=== PATIENT | female | born 1955 | race Caucasian/White ===

== ENCOUNTER 2019-01-25 11:50 | Emergency (ER) | payer OTHER, BC ==
[~2019-01-25] VITALS: Ht 157.5 cm; Wt 100.0 kg
[~2019-01-25 11:50] MED LIST: ASPIRIN325 MG PO; COZAAR25 MG PO; CRESTOR5 MG PO; LEVOTHYROXIN125 MCG PO; LOVASTATIN20 M1 PO; TRAMADOL HCL50 MG PO; ZOLOFT25 MG PO
[2019-01-25] MEDS ORDERED: TRAMADOL HCL50 MG PO (12:56)
[2019-01-25] MEDS ORDERED: HYDROCO/APAP1 TA9 PO (13:24)
[2019-01-25 13:45] VITALS: BP 179/73
== END 2019-01-25 13:45 | disposition home or self-care (01) | DRG 605 ==
LOC: ED 11:50
DX: S20.212A Contusion of left front wall of thorax, initial encounter (principal); I10 Essential (primary) hypertension; V43.63XA Car passenger injured in collision with pick-up truck in traffic accident, initial encounter

== ENCOUNTER → 2021-09-18 | Day surgery (SDC) | payer BC ==
[~2021-09-18] VITALS: Ht 157.5 cm; Wt 113.4 kg
[~2021-09-18] MED LIST changes: +HYDROCO/APAP1 TA9 PO; +PERCOCET 5/321 COMBO PO
[2021-09-18 12:41] VITALS: BP 150/83
== END | disposition home or self-care (01) | DRG 580 ==
LOC: ORM 08:24
PROVIDERS: ATTEND Surgery
PROC: 0JH63WZ Insertion of Totally Implantable Vascular Access Device into Chest Subcutaneous Tissue and Fascia, Percutaneous Approach (ICD-10-PCS; principal; 2021-09-18)
PROC: 02HV33Z Insertion of Infusion Device into Superior Vena Cava, Percutaneous Approach (ICD-10-PCS; 2021-09-18)
DX: C50.912 Malignant neoplasm of unspecified site of left female breast (principal); C79.2 Secondary malignant neoplasm of skin

== ENCOUNTER 2022-03-19 06:50 | Inpatient (IN) | payer BC ==
[~2022-03-19] VITALS: Ht 157.5 cm; Wt 100.0 kg
[~2022-03-19 06:50] MED LIST changes: +MODAFINIL100 MG PO; +NEURONTIN300 MG PO
[2022-03-19 16:00] VITALS: BP 96/40
[2022-03-19 16:58] VITALS: BP 95/51
[2022-03-19 19:03] VITALS: BP 94/44
[2022-03-19 20:00] VITALS: BP 94/44
[2022-03-19 23:51] VITALS: BP 122/49
[2022-03-20] VITALS: BP 120/44
[2022-03-20 04:31] VITALS: BP 117/57
[2022-03-20 05:21] LABS: BASO% 0.1 % (0-3); HEMATOCRIT 27.4 % (37.0-47.0); HEMOGLOBIN 8.7 g/dl (12.0-16.0); IMMATURE GRANULOCYTES 0.3 % (0.0-5.0); LYMPH% 11.2 % (15-41); MEAN CELL VOLUME 92.6 fL CALC (80.0-100.0); MEAN CORPUSCULAR HGB 29.4 pG CALC (26.0-32.0); MEAN CORPUSCULAR HGB CONC 31.8 g/dL CAL (32.0-36.0); MONO% 10.3 % (2-13); NEUT# 9.22 thou/uL (2.00-7.15); NEUT% 78.1 % (42-76); RED BLOOD COUNT 2.96 mill/uL (4.20-5.60); RED CELL DISTRI WIDTH 17.1 % (11.5-15.5)
[2022-03-20 06:39] VITALS: BP 109/58
[2022-03-20 12:50] LABS: HEMATOCRIT 28.3 % (37.0-47.0); HEMOGLOBIN 8.9 g/dl (12.0-16.0)
[2022-03-20 15:25] VITALS: BP 143/62
[2022-03-20 19:14] VITALS: BP 115/53
[2022-03-21 04:30] VITALS: BP 151/67
[2022-03-21 07:11] VITALS: BP 118/57
[2022-03-21 15:43] VITALS: BP 125/51
[2022-03-21 19:02] VITALS: BP 139/53
[2022-03-22 03:44] VITALS: BP 153/60
[2022-03-22 06:53] VITALS: BP 159/62
[2022-03-22 08:04] VITALS: BP 159/62
[2022-03-22] MEDS ORDERED: PERCOCET 5/325M1 TAB PO (13:20)
== END 2022-03-22 14:30 | disposition home health service (06) | DRG 582 ==
LOC: ORM 06:50 → MS2 10:15
PROVIDERS: ADMIT Surgery; ATTEND Surgery
PROC: 0HTU0ZZ Resection of Left Breast, Open Approach (ICD-10-PCS; principal; 2022-03-19)
PROC: 07T60ZZ Resection of Left Axillary Lymphatic, Open Approach (ICD-10-PCS; 2022-03-19)
PROC: 0JPT0WZ Removal of Totally Implantable Vascular Access Device from Trunk Subcutaneous Tissue and Fascia, Open Approach (ICD-10-PCS; 2022-03-19)
PROC: 02PY33Z Removal of Infusion Device from Great Vessel, Percutaneous Approach (ICD-10-PCS; 2022-03-19)
DX: C50.912 Malignant neoplasm of unspecified site of left female breast (principal); C77.3 Secondary and unspecified malignant neoplasm of axilla and upper limb lymph nodes; C79.2 Secondary malignant neoplasm of skin; D62 Acute posthemorrhagic anemia; I10 Essential (primary) hypertension; E03.9 Hypothyroidism, unspecified; E78.00 Pure hypercholesterolemia, unspecified; Z86.73 Personal history of transient ischemic attack (TIA), and cerebral infarction without residual deficits; Z80.3 Family history of malignant neoplasm of breast; Z80.1 Family history of malignant neoplasm of trachea, bronchus and lung; Z92.21 Personal history of antineoplastic chemotherapy
CPT/HCPCS: J0131; J0690; J1100

== ENCOUNTER 2022-03-30 18:53 | Inpatient (IN) | payer BC ==
[~2022-03-30] VITALS: Ht 157.5 cm; Wt 102.0 kg
[~2022-03-30 18:53] MED LIST changes: +PERCOCET 5/325M1 TAB PO
--- NOTE | 2022-03-30 19:33 | NUR ---
PT IN VIA POV WITH C/O FVER DENIES ANY OTHER SYMPTOMS. PT AND VITALS STABLE. PROVIDER NOTIFIED
[2022-03-30 19:49] VITALS: BP 167/69
[2022-03-30 20:31] LABS: BASO% 0.3 % (0-3); EOS% 2.1 % (0-8); IMMATURE GRANULOCYTES 0.1 % (0.0-5.0); LYMPH% 8.5 % (15-41); MEAN CELL VOLUME 92.3 fL CALC (80.0-100.0); MEAN CORPUSCULAR HGB 27.9 pG CALC (26.0-32.0); MEAN CORPUSCULAR HGB CONC 30.3 g/dL CAL (32.0-36.0); MONO% 5.8 % (2-13); NEUT# 13.13 thou/uL (2.00-7.15); NEUT% 83.2 % (42-76); RED BLOOD COUNT 3.9 mill/uL (4.20-5.60); RED CELL DISTRI WIDTH 17.9 % (11.5-15.5)
[2022-03-30 20:33] LABS: HEMOGLOBIN 10.9 g/dl (12.0-16.0)
[2022-03-30 20:45] LABS: ALBUMIN 4.1 g/dL (3.2-5.0); ALKALINE PHOSPHATASE 73 u/l (38-126); ANION GAP 8 (6-22 (CALC)); BILIRUBIN, TOTAL 0.5 mg/dL (0.02-1.3); BUN 16 mg/dL (8-23); BUN/CREATININE RATIO 20 (12-20 (CALC)); CARBON DIOXIDE 28 mmol/l (22-30); CHLORIDE 101 mmol/l (95-108); CREATININE 0.8 mg/dL (0.5-1.0); GFR FOR AFR.AMER. > 60 ML/MIN (>=60 (CALC)); GFR OTHER RACES > 60 ML/MIN (>=60 (CALC)); POTASSIUM 4.2 mmol/l (3.5-5.1); SGOT/AST 42 u/l (9-36); SODIUM 133 mmol/l (137-146)
[2022-03-30 23:32] LABS: URINE BILIRUBIN - DIPSTICK NEGATIVE (NEGATIVE); URINE BLOOD DIPSTICK NEGATIVE (NEGATIVE); URINE COLOR YELLOW; URINE GLUCOSE - DIPSTICK NEGATIVE (NEGATIVE); URINE KETONE NEGATIVE (NEGATIVE); URINE LEUK ESTERASE NEGATIVE (NEGATIVE); URINE PROTEIN - DIPSTICK NEGATIVE (NEG-TRACE); URINE SPECIFIC GRAVITY 1.015; URINE UROBILINOGEN - DIPSTICK 0.2 E.U./dL (0.2)
[2022-03-30 23:33] LABS: URINE NITRITE - DIPSTICK NEGATIVE (Negative)
[2022-03-31] VITALS (12 sets, daily range): BP systolic 96–154; BP diastolic 32–59
--- NOTE | 2022-03-31 03:28 | NUR ---
AFTER SEVERAL ATTEMPTS FINALLY ABLE TO CALL REPORT TO FLOOR AND THEY ARE WILLING TO RECEIVE PATIENT.
--- NOTE | 2022-03-31 03:45 | NUR ---
RECEIVED PATIENT TO ROOM 266 VIA WHEELCHAIR. ALERT AND ORIENTED X3. INSTRUCTED ON USE OF EQUIPMENT AND CALL LIGHT. NO DISTRESS NOTED AT THIS TIME, CALL LIGHT WITHIN REACH.
--- NOTE | 2022-03-31 05:01 | NUR ---
ASSESSMENT COMPLETE. BEGAN IVF'S OF NS @ 125ML/HR, IV SITE PATENT. PATIENT C/O MILD PAIN, NO MEDICATION PROVIDED. NO DISTRESS NOTED AT THIS TIME. CALL LIGHT WITHIN REACH.
--- NOTE | 2022-03-31 10:18 | NUR ---
PT SEEN AWAKE, ALERT, AT REST IN THE BED. PT WITH RECENT LEFT MASTECTOMY, WOUND OPEN TO AIR. PT AWARE OF PENDING OR VISIT FOR I&D OF LEFT AXILLARY HEMATOMA, IS THERE AT THIS MINUTE. PT WITH FEVER.
--- NOTE | 2022-03-31 13:21 | NUR ---
PT HAS RETURNED FROM SURGERY, SEEN DROWSY BUT APPROPRIATE. JPs X [address] TO LEFT CHEST. NO COMPLAINT OF PAIN OR OTHERWISE. LAWRENCE HAS BEEN PLACED IN OR.
--- NOTE | 2022-03-31 16:26 | NUR ---
PT AT REST IN THE BED WITH EYES CLOSED. SHE GRIMMACES WITH MOVEMENT IN THE BED. JPs EMPTIED. NO REQUEST FOR PAIN MEDICINE TO THIS POINT.
--- NOTE | 2022-03-31 21:00 | NUR ---
PATIENT RESTING IN BED AT THIS TIME-AWAKE ALERT AND C/O POST-OP PAIN TO LEFT AXILLA AND CHEST-MEDICATED WITH PERCOCET 5/325MG PO FOR 6/10 PAIN SCALE. PATIENT WITH O2 VIA NASAL CANNULA IN PLACE AT 2LPM-LAST O2 SAT WAS 93%. DRESSING TO LEFT CHEST IS CDI AT THIS TIME. 2 REJI DRAINS ARE INTACT AND WERE EMPTIED AND RECHARGED. BOTH DRAINING SMALL AMT OF BLOODY FLUID. IVF PATENT AND INFUSING VIA RAC SITE AT 100CC/HR. SITE REMAINS HEALTHY. SCD'S ARE IN PLACE. LUNGS ARE CLEAR. ABD IS SOFT WITH ACTIVE BS. STATES THAT HER LAST BM WAAS THIS MORNING BEFORFE SURGER. LAWRENCE CATH PATENT AND DRAINING YELLOW URINE. SAFETY PRECAUTIONS REINFORCED. CALL LIGHT IN REACH. WILL CONT TO MONITOR.
[2022-04-01] VITALS: BP 122/40
--- NOTE | 2022-04-01 | NUR ---
RESTING IN BED WITH HOB SLIGHTLY ELEVATED-EYES ARE CLOSED AND RESPS ARE EVEN AND UNLABORED. ZOSYN HUNG AND INFUSING ORDERED. REJI DRAINS ARE INTACT AND RECHARGE WITH SMALL AMT OF BLOODY DRAINAGE. LAWRENCE PATENT AND DRAINING YELLOW URINE. CALL LIGHT IN REACH. WILL CONT TO MONITOR.
[2022-04-01 04:22] VITALS: BP 157/60
--- NOTE | 2022-04-01 05:41 | NUR ---
PATIENT RESTING IN BED AT THIS TIME. EYES ARE CLOSED AND RESPS ARE EVEN AND UNLABORED. O2 VIA NASAL CANNULA IN PLACE. PATIENT MEDICATED WITH TORADOL 15MG IVP ORDERED. ,ZOSYN HUNG AND INFUSING VIA RAC SITE. REJI#1-17CC OF BLOODY DRAINAGE, REJI#2-30CC BLOODY FLUID. LAWRENCE CATH PATENT AND DRAINED 300CC YELLOW U RINE TONIGHT. IVF RUNNING 100CC/HR VIA RAC. DRESSING TO LEFT CHEST CDI AT THIS TIME. NO FEVER TONIGHT. SAFETY PRECAUTIONS REINFORCED. CALL LIGHT IN REACH. WILL CONT TO MONITOR.
[2022-04-01 06:13] LABS: BASO% 0.5 % (0-3); EOS% 5.7 % (0-8); IMMATURE GRANULOCYTES 0.1 % (0.0-5.0); LYMPH% 16.6 % (15-41); MEAN CELL VOLUME 93.7 fL CALC (80.0-100.0); MEAN CORPUSCULAR HGB 28.1 pG CALC (26.0-32.0); MONO% 10.1 % (2-13); NEUT# 5.09 thou/uL (2.00-7.15); RED BLOOD COUNT 3.17 mill/uL (4.20-5.60); RED CELL DISTRI WIDTH 17.7 % (11.5-15.5)
[2022-04-01 06:14] LABS: HEMATOCRIT 29.7 % (37.0-47.0); HEMOGLOBIN 8.9 g/dl (12.0-16.0)
[2022-04-01 06:19] LABS: ALKALINE PHOSPHATASE 45 u/l (38-126); BILIRUBIN, TOTAL 0.7 mg/dL (0.02-1.3); BUN 10 mg/dL (8-23); BUN/CREATININE RATIO 12 (12-20 (CALC)); CARBON DIOXIDE 24 mmol/l (22-30); CREATININE 0.9 mg/dL (0.5-1.0); GFR FOR AFR.AMER. > 60 ML/MIN (>=60 (CALC)); GFR OTHER RACES > 60 ML/MIN (>=60 (CALC)); POTASSIUM 3.5 mmol/l (3.5-5.1); SGOT/AST 25 u/l (9-36); SODIUM 139 mmol/l (137-146)
[2022-04-01 06:20] LABS: ALBUMIN 2.7 g/dL (3.2-5.0); ANION GAP 5 (6-22 (CALC)); CHLORIDE 114 mmol/l (95-108); TOTAL PROTEIN 5.2 g/dL (6.3-8.2)
[2022-04-01 06:44] VITALS: BP 131/53
--- NOTE | 2022-04-01 08:00 | NUR ---
GOT REPORT FROM SYSTEMS ADMIN NURSE. PATIENT ASSESSMENT. NO COMPLAINTS OF PAIN OR DISCOMFORT. BED ALARM ON. CALL LIGHT AND BEDISDE TABLE WITH IN REACH ADVISED TO CALL IF NEEDING ANYTHING.
--- NOTE | 2022-04-01 12:00 | NUR ---
PATIENT SITTING IN BED WATCHING TV. NO COMPLAINTS OF PAIN OR DISCOMFORT. BED ALARM ON. CALL LIGHT AND BEDISDE TABLE WITH IN REACH ADVISED TO CALL IF NEEDING ANYTHING.
[2022-04-01 15:17] VITALS: BP 159/63
[2022-04-01 15:18] VITALS: BP 159/63
[2022-04-01 19:21] VITALS: BP 162/78
--- NOTE | 2022-04-01 20:56 | NUR ---
PT AWAKE, ALERT, C/O NO PAIN AT THE MOMENT, VITALS STABLE, CALL LIGHT WITHIN REACHED, WILL CONT TO MONITOR
[2022-04-02] VITALS (7 sets, daily range): BP systolic 147–198; BP diastolic 48–79
--- NOTE | 2022-04-02 00:42 | NUR ---
PT IV WAS BLOW, NEW IV 20 RFAC, TORADOL AND ZOSYN ORDER, CALL LIGHT WITHIN REACHED, WILL CONT TO MONITOR
--- NOTE | 2022-04-02 04:46 | NUR ---
PT RESTING C/O NO PAIN AT THE MOMENT PAIN IS MANAGED, VITALS WITHIN RANGED, IV SITE IS IN INTAC, CALL LIGHT WITHIN REACHED, WILL CONT TO MONITOR
--- NOTE | 2022-04-02 08:00 | NUR ---
ASSISTED PT TO RESTROOM X1 ASSIST. ASSESSMENT COMPLETED. UPDATED PT IN CURRENT PLAN OF CARE. PT INDICATED UNDERSTANDING. REJI DRAIN X2 ON LEFT SIDE, SHOWING LIGHT RED BLOOD DRAINAGE. FALL/SAFTEY PRECAUTION IN PLACE. CALL LIGHT WITHIN REACH.
--- NOTE | 2022-04-02 12:00 | NUR ---
PT RESTING IN ROOM. STATES NO NEEDS AT THIS ITME. BREATHING EVEN AN DUNLABORED. FALL/SAFTEY PRECAUITO BALTA PLACE. CALL LIGHT WITHIN REACH
--- NOTE | 2022-04-02 14:00 | NUR ---
DRESSING CHANGED. PT TOLERATED WELL. FALL/SAFTEY PRECAUTIONIN PLACE, CALL LIGHT WITHIN REACH. -
--- NOTE | 2022-04-02 16:00 | NUR ---
PT RESTING WATCHING TV. STATES NO NEEDS AT THIS TIME. FALL/SAFTEY PRECAUITON IN PLACE. CALL LIGHT WITHIN REACH.
--- NOTE | 2022-04-02 19:40 | NUR ---
PATIENT RESTING IN BED. ALERT AND ORIENTED. ABLE TO MAKE NEEDS KNOWN. ASSESSMENT COMPLETE. REJI DRAINS OBSERVED TO LEFT NEAR SURGICAL SITE. DRESSING IN PLACE TO LEFT CHEST AREA. COMPLAINTS OF DISCOMFORT THAT COMES AND GOES. WILL CHECK EMAR FOR PRN MEDS. NO DISTRESS NOTED. BED REMAINS IN LOW POSITION. CALL [place] IN REACH.
--- NOTE | 2022-04-03 | NUR ---
PATIENT SITTING UP IN BED. NO COMPLAINTS VOICED AT THIS TIME. REJI DRAINS EMPTIED EARLIER IN SHIFT. PATIENT TOLERATED WELL. BED REMAINS IN LOW POSITION. CALL [place] IN REACH.
[2022-04-03 02:03] VITALS: BP 193/79
[2022-04-03 03:24] VITALS: BP 172/70
--- NOTE | 2022-04-03 03:35 | NUR ---
PATIENT RESTING IN BED. NO COMPLAINTS OF PAIN OR DISCOMFORT. NO DISTRESS NOTED. BED REMAINS IN LOW POSITION. CALL [place] AND BELONGINGS IN REACH.
[2022-04-03 05:57] LABS: BASO% 0.2 % (0-3); EOS% 7.2 % (0-8); HEMATOCRIT 30.3 % (37.0-47.0); HEMOGLOBIN 9.1 g/dl (12.0-16.0); IMMATURE GRANULOCYTES 0.1 % (0.0-5.0); MEAN CELL VOLUME 92.1 fL CALC (80.0-100.0); MEAN CORPUSCULAR HGB 27.7 pG CALC (26.0-32.0); MONO% 7.6 % (2-13); NEUT# 6.46 thou/uL (2.00-7.15); NEUT% 69.9 % (42-76); RED BLOOD COUNT 3.29 mill/uL (4.20-5.60); RED CELL DISTRI WIDTH 17.1 % (11.5-15.5)
[2022-04-03 07:02] VITALS: BP 163/68
[2022-04-03] MEDS ORDERED: LEVOFLOXACIN500MG PO (12:35)
[2022-04-03 12:54] VITALS: BP 150/48
--- NOTE | 2022-04-03 15:25 | NUR ---
PATIENT DISCHARGE HOME WITH . DAUGHTER PICKED HER UP. TWO DRAINS LEFT PER MD ORDER. INFORMED PATIENT TO SAFE OUTPUT TO TAKE TO [facility]. PIV REMOVED. PATIENT LEFT UNIT IN WHEELCHAIR.
== END 2022-04-03 15:25 | disposition home health service (06) | DRG 908 ==
LOC: ED 18:53 → MS2 23:48
PROVIDERS: Family Medicine; ADMIT Surgery; ATTEND Surgery
PROC: 0JDF0ZZ Extraction of Left Upper Arm Subcutaneous Tissue and Fascia, Open Approach (ICD-10-PCS; principal; 2022-03-31)
DX: L76.32 Postprocedural hematoma of skin and subcutaneous tissue following other procedure (principal); C79.2 Secondary malignant neoplasm of skin; T81.41XA Infection following a procedure, superficial incisional surgical site, initial encounter; C50.912 Malignant neoplasm of unspecified site of left female breast; I10 Essential (primary) hypertension; E03.9 Hypothyroidism, unspecified; F41.9 Anxiety disorder, unspecified; B96.89 Other specified bacterial agents as the cause of diseases classified elsewhere; Y83.6 Removal of other organ (partial) (total) as the cause of abnormal reaction of the patient, or of later complication, without mention of misadventure at the time of the procedure; Z90.12 Acquired absence of left breast and nipple; Z86.73 Personal history of transient ischemic attack (TIA), and cerebral infarction without residual deficits; Z20.822 Contact with and (suspected) exposure to COVID-19
CPT/HCPCS: J0131; J3370

== ENCOUNTER 2022-11-05 07:01 | Day surgery (SDC) | payer BC ==
[~2022-11-05] VITALS: Ht 157.5 cm; Wt 997.9 kg
[~2022-11-05 07:01] MED LIST changes: +ADDERALL15 MG PO; +CLARITIN10 M1 PO; +FEMARA2.5 M1 PO; +IMMODIUM PO; +IRON325 M1 PO; +LACTASE ENZ PO; +LEVOFLOXACIN500MG PO; +MELATONIN3 M1 PO; +VERZENIO100 MG PO; +VIACTIV PO; +ZOFRAN4 MG/TAB PO
[2022-11-05 09:02] VITALS: BP 169/75
== END 2022-11-05 09:11 | disposition home or self-care (01) | DRG 812 ==
LOC: ORM 07:01
PROVIDERS: ATTEND Surgery
PROC: 0DJD8ZZ Inspection of Lower Intestinal Tract, Via Natural or Artificial Opening Endoscopic (ICD-10-PCS; principal; 2022-11-05)
PROC: 0DJ08ZZ Inspection of Upper Intestinal Tract, Via Natural or Artificial Opening Endoscopic (ICD-10-PCS; 2022-11-05)
DX: D50.9 Iron deficiency anemia, unspecified (principal); K57.30 Diverticulosis of large intestine without perforation or abscess without bleeding; K44.9 Diaphragmatic hernia without obstruction or gangrene; K21.9 Gastro-esophageal reflux disease without esophagitis; K64.4 Residual hemorrhoidal skin tags; I10 Essential (primary) hypertension; E03.9 Hypothyroidism, unspecified; F41.9 Anxiety disorder, unspecified; Z86.73 Personal history of transient ischemic attack (TIA), and cerebral infarction without residual deficits; Z92.21 Personal history of antineoplastic chemotherapy; Z85.3 Personal history of malignant neoplasm of breast